=== PATIENT | male | born 1985 | race Caucasian/White ===

== ENCOUNTER → 2019-07-30 | Outpatient (REF) | payer BC ==
[2019-07-30 11:38] LABS: ALBUMIN 4.1 GM/DL (3.2-5.2); ALT/SGPT 25 U/L (12-78); BILIRUBIN,TOTAL 2.7 MG/DL (0.2-1.0); BLOOD UREA NITROGEN 15 MG/DL (7-18); CARBON DIOXIDE LEVEL 30 MEQ/L (21-32); CHLORIDE LEVEL 107 MEQ/L (98-107); CREATININE FOR GFR 1.12 MG/DL (0.70-1.30); GLOMERULAR FILTRATION RATE > 60.0 (>60); GLUCOSE, FASTING 92 MG/DL (70-100); HEMATOCRIT 44.6 % (42.0-52.0); HEMOGLOBIN 15.4 g/dl (13.5-17.5); MEAN CORPUSCULAR HEMOGLOBIN 29.8 pg (27.0-33.0); MEAN CORPUSCULAR HGB CONC 34.5 g/dl (32.0-36.5); MEAN CORPUSCULAR VOLUME 86.3 fl (80.0-96.0); PLATELET COUNT, AUTOMATED 163 10^3/uL (150-450); POTASSIUM SERUM 3.9 MEQ/L (3.5-5.1); RED BLOOD COUNT 5.17 10^6/uL (4.30-6.10); SODIUM LEVEL 141 MEQ/L (136-145); TOTAL PROTEIN 7.1 GM/DL (6.4-8.2); WHITE BLOOD COUNT 5.7 10^3/uL (4.0-10.0)
[2019-07-31 09:50] LABS: HIV 1&2 SCREEN CENTAUR NEGATIVE (NEGATIVE)
== END ==
LOC: M SFHCCLAY 07:35
PROVIDERS: ATTEND Family Medicine
DX: Z02.1 Encounter for pre-employment examination (principal); Z11.4 Encounter for screening for human immunodeficiency virus [HIV]

== ENCOUNTER → 2019-10-02 | Outpatient (REF) | payer BC | LOC: M SMT 15:01 | PROVIDERS: ATTEND Urology | DX: Z30.2 Encounter for sterilization (principal) ==

== ENCOUNTER → 2019-12-04 | Outpatient (REF) | payer BC ==
[2019-12-29 14:09] LABS: SEMEN APPEARANCE OPAQUE (OPAQUE); SEMEN VISCOSITY LIQUID (LIQUID); WBC CONCENTRATION <=1 M/ml (<=1 M/ml)
== END ==
LOC: M SMT 07:42
PROVIDERS: ATTEND Urology
DX: Z98.52 Vasectomy status (principal)